=== PATIENT | female | born 1950 ===

== ENCOUNTER 2020-07-05 09:10 | Emergency (ER) | payer OTHER ==
[~2020-07-05] VITALS: Ht 157.5 cm; Wt 79.4 kg
[2020-07-05] MEDS ORDERED: LORazepam 2 MG/ML VIAL ONE (09:28)
[2020-07-05] MEDS ORDERED: LORazepam 2 MG/ML VIAL IVP ONE (09:30)
[2020-07-05] MEDS ORDERED: IOHEXOL 350 MG/ML 100 ML VIAL ONE (09:44)
[2020-07-05] MEDS ORDERED: SODIUM CHLORIDE 0.9% 100 ML ONE (09:44)
[2020-07-05 09:59] LABS: BASOPHILS % (AUTO) 1.5 % (0.0-2.0); EOSINOPHILS % (AUTO) 3.2 % (1.0-6.0); HEMATOCRIT 33.9 % (36-46); HEMOGLOBIN 11.2 g/dL (12.0-16.0); LYMPHOCYTES % (AUTO) 22.7 % (22.0-44.0); MEAN CORPUSCULAR HEMOGLOBIN 30.2 pg (26.0-34.0); MEAN CORPUSCULAR HGB CONC 33.2 G/dL (31.0-37.0); MEAN CORPUSCULAR VOLUME 91 fL (80-100); MONOCYTES # (AUTO) 0.3 K/uL (0.1-1.0); MONOCYTES % (AUTO) 7.8 % (2.0-9.0); NEUTROPHILS # (AUTO) 2.8 K/uL (1.8-7.7); NEUTROPHILS % (AUTO) 64.8 % (40.0-70.0); PLATELET COUNT (AUTO) 252 K/uL (150-450); RED BLOOD CELL COUNT(AUTO) 3.73 MIL/uL (4.00-5.20); RED CELL DISTRIBUTION WIDTH 17.1 % (11.5-14.5)
[2020-07-05] MEDS ORDERED: DEXAMETHASONE SOD PHOS 4 MG/ML 5 ML VIAL IVP ONE (10:00)
[2020-07-05] MEDS ORDERED: LevETIRAcetam 1,000 MG in DEXTROSE 5%-WATER 100 ML IV ONE (10:00)
[2020-07-05 10:05] LABS: CALCIUM, TOTAL 8.2 mg/dL (8.8-10.5); CREATININE 1.03 mg/dL (0.60-1.30); POTASSIUM 3.3 mmol/L (3.5-5.1)
[2020-07-05 10:08] LABS: ALBUMIN 2.8 g/dL (3.4-5.0); BILIRUBIN,TOTAL 0.3 mg/dL (0.1-1.0); PROTHROMBIN TIME 10.5 SEC (9.4-11.6); TOTAL PROTEIN, SERUM 5.4 g/dL (6.4-8.2)
[2020-07-05 11:33] LABS: COVID AG,FIA SOURCE NASOPHARYNGEAL
[2020-07-05 12:00] VITALS: BP 140/76
== END 2020-07-05 13:33 | disposition short-term general hospital (02) ==
LOC: EMS 09:12
DX: G93.89 Other specified disorders of brain (principal); R53.1 Weakness; F17.290 Nicotine dependence, other tobacco product, uncomplicated; Z20.822 Contact with and (suspected) exposure to COVID-19
CPT/HCPCS: 36415; 70450; 70496; 71045; 74176; 80053; 83690; 84484; 85025; 85610; 87426; 93005; 96374; 96375; 99291; 99292; A9575; J0712; J1100; J2060; J7050; J7060; 51702